=== PATIENT | male | born 1995 | race Caucasian/White ===

== ENCOUNTER 2018-02-25 11:43 | Observation (INO) | payer BC ==
[2018-02-25 12:07] LABS: PLATELET COUNT 233 10^3/uL (150-400)
[2018-02-25] MEDS ORDERED: NS 1,000 ML IV ONE ×3 (12:18→13:15)
--- NOTE | 2018-02-25 12:18 | EDPHY ---
H & P Stated Complaint: RLQ pain for 5 days, trouble voiding. Time Seen by Provider: 02/25/18 12:06 HPI/ROS: CHIEF COMPLAINT: Right lower quadrant abdominal pain HISTORY OF PRESENT ILLNESS: 23-year-old male complaining of 5 days of abdominal pain. Describes the pain is initially in the periumbilical region has now migrated to the right lower quadrant where he has focal tenderness, decreased appetite. Last oral intake was dinner last evening. He notes that he is also feeling constipated. Did have a bowel movement this morning but describes as being smaller than usual. No back pain. No vomiting. No fever or chills. No abdominal or testicular trauma. No genitalia pain. Last oral intake was dinner last night REVIEW OF SYSTEMS: A ten point review of systems was performed and is negative with the exception of the items mentioned in the HPI PAST MEDICAL & SURGICAL HISTORY: No pertinent medical or surgical history SOCIAL HISTORY: Positive for chewing tobacco PHYSICAL EXAM (Prior to examination, patient consented to physical exam, hands were washed and my usual and customary physical exam procedures followed) 1) GENERAL: Well-developed, well-nourished, alert and oriented. Appears to be in no acute distress. 2) HEAD: Normocephalic, atraumatic 3) HEENT: Pupils equal, round, reactive to light bilaterally. Sclera anicteric. Nasopharynx, oropharynx, clear, no lesions. 4) NECK: Full range of motion, no meningeal signs. 5) LUNGS: Clear auscultation bilaterally, no wheezes, no rhonchi, no retractions. 6) HEART: Regular rate and rhythm, no murmur, no heave, no gallop. 7) ABDOMEN: he is focally tender to palpation in the right lower quadrant at McBurney's point,, negative Correia's, negative Rovsing's, negative peritoneal sign, 8) MUSCULOSKELETAL: Moving all extremities, no focal areas of tenderness, no obvious trauma. No peripheral edema or discoloration. 9) BACK: No CVA tenderness, no midline vertebral tenderness, no fluctuance, no step-off, no obvious trauma, no visual or palpable abnormality. 10) SKIN: No rash, no petechiae. 11) : Normal male external genitalia, circumcised, no urethral discharge, bilateral testicles nontender, bilateral testicles non high-riding, cremasteric reflex present and brisk bilaterally. Inguinal examination bilaterally is unremarkable with no hernia or mass appreciated.. DIFFERENTIAL DIAGNOSIS: My differential diagnosis includes, but is not limited to, acute appendicitis, acute cholecystitis, bowel obstruction, acute pancreatitis, testicular torsion, constipation, gastritis and urinary tract infection. The patient understands that this diagnosis is provisional and can never be 100% accurate. This is a partial list of diagnoses considered. These considerations are based on history, physical exam, past history and reassessment. - Personal History Current Tetanus Diphtheria and Acellular Pertussis (TDAP): Yes - Medical/Surgical History Hx Asthma: No Hx Chronic Respiratory Disease: No Hx Diabetes: No Hx Cardiac Disease: No Hx Renal Disease: No Hx Cirrhosis: No Hx Alcoholism: No Hx HIV/AIDS: No Hx Splenectomy or Spleen Trauma: No Other PMH: Denies - Social History Smoking Status: Current every day smoker Constitutional: Initial Vital Signs Temperature (C) 36.6 C 02/25/18 11:43 Heart Rate 83 02/25/18 11:43 Respiratory Rate 16 02/25/18 11:43 Blood Pressure 116/79 02/25/18 11:43 O2 Sat (%) 96 02/25/18 11:43 O2 Delivery Mode Room Air Allergies/Adverse Reactions: No Known Allergies Allergy (Unverified 02/25/18 11:47) Home Medications: Medication Instructions Recorded Herbals/Supplements -Info Only 1 ea PO DAILY 02/25/18 [place]-3 Fatty Acids [Fish Oil 1000 1,000 mg PO DAILY 02/25/18 mg (*)] Medical Decision Making - Diagnostics Imaging Results: Imaging Impressions Abdomen CT 02/25/18 12:28 Impression: Acute appendicitis Results called and discussed with Ezekiel Kaur, at 02/25/2018 13:11 General information for patients regarding this examination can be found at [email or web address]. If you have questions or comments about this report, please contact me at [phone] (hospital) or [phone] (cell). Images reviewed by myself ED Course/Re-evaluation: 12:20 p.m.: Patient is complaining of right lower quadrant abdominal pain is focally tender to palpations location. Will obtain diagnostic studies and likely imaging studies. Care of patient under supervision of secondary supervising physician Dr Valentine with whom I discussed case. 1:10 p.m.: Consultation with radiologist who called me regarding patient's positive appendicitis findings on CT imaging with no evidence of perforation. 1:15 p.m.: Consultation with on-call surgery Dr. Coughlin will plan on taking patient operating room later this afternoon. Patient remains NPO since dinner last night. - Data Points Laboratory Results: Laboratory Results 02/25/18 11:56 02/25/18 11:56 02/25/18 02/25/18 11:56 11:56 WBC 7.47 10^3/uL 10^3/uL (3.80-9.50) RBC 5.36 10^6/uL 10^6/uL (4.40-6.38) Hgb 16.0 g/dL g/dL (13.7-17.5) Hct 46.2 % % (40.0-51.0) MCV 86.2 fL fL (81.5-99.8) MCH 29.9 pg pg (27.9-34.1) MCHC 34.6 g/dL g/dL (32.4-36.7) RDW 11.5 % % (11.5-15.2) Plt Count 233 10^3/uL 10^3/uL (150-400) MPV 9.7 fL fL (8.7-11.7) Neut % (Auto) 62.9 % % (39.3-74.2) Lymph % (Auto) 23.0 % % (15.0-45.0) Frederick % (Auto) 9.4 % % (4.5-13.0) Eos % (Auto) 3.9 % % (0.6-7.6) Baso % (Auto) 0.5 % % (0.3-1.7) Nucleat RBC Rel Count 0.0 % % (0.0-0.2) Absolute Neuts (auto) 4.70 10^3/uL 10^3/uL (1.70-6.50) Absolute Lymphs (auto) 1.72 10^3/uL 10^3/uL (1.00-3.00) Absolute Monos (auto) 0.70 10^3/uL 10^3/uL (0.30-0.80) Absolute Eos (auto) 0.29 10^3/uL 10^3/uL (0.03-0.40) Absolute Basos (auto) 0.04 10^3/uL 10^3/uL (0.02-0.10) Absolute Nucleated RBC 0.00 10^3/uL 10^3/uL (0-0.01) Immature Gran % 0.3 % % (0.0-1.1) Immature Gran # 0.02 10^3/uL 10^3/uL (0.00-0.10) Sodium 142 mEq/L mEq/L (135-145) Potassium 4.5 mEq/L mEq/L (3.5-5.2) Chloride 103 mEq/L mEq/L (97-110) Carbon Dioxide 24 mEq/l mEq/l (22-31) Anion Gap 15 mEq/L mEq/L (8-16) BUN 14 mg/dL mg/dL (7-23) Creatinine 0.9 mg/dL mg/dL (0.7-1.3) Estimated GFR > 60 Glucose 98 mg/dL mg/dL (70-100) Calcium 9.4 mg/dL mg/dL (8.5-10.4) Total Bilirubin 0.6 mg/dL mg/dL (0.1-1.4) Conjugated Bilirubin 0.5 mg/dL mg/dL (0.0-0.5) Unconjugated Bilirubin 0.1 mg/dL mg/dL (0.0-1.1) AST 33 IU/L IU/L (17-59) ALT 67 IU/L IU/L (21-72) Alkaline Phosphatase 69 IU/L IU/L (38-126) Total Protein 7.5 g/dL g/dL (6.3-8.2) Albumin 4.4 g/dL g/dL (3.5-5.0) Lipase 114 IU/L IU/L (23-300) Medications Given: Discontinued Medications Cefazolin Sodium (Ancef Syringe) Confirm Administered Dose 1 gm .ROUTE .STK-MED ONE Stop: 02/25/18 15:24 Last Admin: 02/25/18 16:13 Dose: 1 gm Heparin Sodium (Porcine) (Heparin Sc Injection) Confirm Administered Dose 10, 000 unit .ROUTE .STK-MED ONE Stop: 02/25/18 15:23 Last Admin: 02/25/18 16:13 Dose: 5,000 unit Sodium Chloride (Ns) 1,000 mls @ 0 mls/hr IV ONCE ONE PRN Reason: Wide Open Stop: 02/25/18 12:19 Last Admin: 02/25/18 12:30 Dose: 1,000 mls Ceftriaxone Sodium/Dextrose (Rocephin 1 Gm (Premix)) 50 mls @ 100 mls/hr IV EDNOW ONE PRN Reason: Protocol Stop: 02/25/18 13:44 Last Admin: 02/25/18 13:21 Dose: 50 mls Metronidazole/Sodium Chloride (Flagyl 500 Mg (Premix)) 100 mls @ 100 mls/hr IV EDNOW ONE PRN Reason: Protocol Stop: 02/25/18 14:12 Last Admin: 02/25/18 13:21 Dose: 100 mls Sodium Chloride (Ns) 1,000 mls @ 0 mls/hr IV ONCE ONE PRN Reason: Wide Open Stop: 02/25/18 12:31 Last Admin: 02/25/18 13:20 Dose: 1,000 mls Sodium Chloride (Ns) 1,000 mls @ 0 mls/hr IV ONCE ONE PRN Reason: Wide Open Stop: 02/25/18 13:16 Last Admin: 02/25/18 13:21 Dose: Not Given Departure - Departure Disposition: [facility] Inpatient Acute Clinical Impression: Acute appendicitis Qualifiers: Acute appendicitis type: with localized peritonitis Qualified Code(s): K35.3 - Acute appendicitis with localized peritonitis Condition: Fair
[2018-02-25] MEDS ORDERED: IOPAMIDOL (ISOVUE-300) 100 ML BTL ONE (12:31)
[2018-02-25] MEDS ORDERED: LR 1,000 ML IV ONE (15:03)
[2018-02-25] MEDS ORDERED: HEPARIN 5,000 UNIT/0.5 ML SYR ONE (15:22)
[2018-02-25] MEDS ORDERED: ceFAZolin 1 GM/5 ML SYR ONE (15:23)
--- NOTE | 2018-02-25 15:30 | GHP ---
[f rep st] PREOP HISTORY AND PHYSICAL DATE OF ADMISSION: 02/25/2018 The patient is a 23-year-old white male who has had the onset of abdominal pain since Sunday morning at 2 to 3 in the morning. He woke with pain. It was described as "stomach cramps" and a colicky pain centered in the epigastrium, later spreading to the lower abdomen. He has had minimal bowel movements over the week. He has had a decreased appetite. Today, his pain has moved to the right lower quadrant. He was seen in the ER and a CAT scan was consistent with an acute appendicitis with a great amount of periappendiceal edema. He has had no recent upper respiratory tract infection or diarrhea. He has not traveled outside the [place] or had antibiotics in the last 6 months. There is no history of inflammatory bowel disease, though he does have irritable bowel-like symptoms (diarrhea). He had no prior abdominal surgery and no prior similar symptoms. SOCIAL HISTORY: He has been using tobacco products since age 12. Currently he is down to 2-3 cigarettes a day but does chew a tin of tobacco on a daily basis. He does not use alcohol. ALLERGIES: He has no known drug allergies. MEDICATIONS: He does take a probiotic. PAST MEDICAL HISTORY: He had a circumcision, then a recircumcision at age 4. He has no history of rheumatic fever, tuberculosis, hepatitis, or transfusions. REVIEW OF SYSTEMS: He had a concussion at age 5. He does have GERD on a daily basis (at night when he lies down) for greater than 5 years. He is tried starting using psyllium husk for his irritable bowel syndrome/diarrhea. There are no limitations on his activities. No history of steroid use. PHYSICAL EXAMINATION: GENERAL: He is awake and alert and in mild distress. HEENT: His skull is normocephalic and atraumatic. NEUROLOGIC: He is alert and oriented. No focal lateralizing findings. NECK: Unremarkable. Specifically, there are no carotid bruits. His thyroid is not enlarged. LYMPH NODES: There is no cervical, supraclavicular, axillary, or inguinal lymphadenopathy. BACK: Unremarkable. LUNGS: Clear to auscultation. CARDIAC: S1, S2 normal. Normal split of S2. ABDOMEN: Hypoactive bowel sounds. Psoas and obturator signs are negative. He is nontender with cough. To palpation, on a scale of 1-10, left upper quadrant is 1, left mid abdomen is 2, left lower quadrant is 4, epigastrium is 1, periumbilical area is 1, suprapubic area is 2, right upper quadrant is 1, right mid abdomen is 5, right lower quadrant is 8. DIAGNOSTICS: His white blood cell count is 7.4 with 62% neutrophils. Hematocrit is 46. His chemistries are unremarkable. His CAT scan shows an appendix with periappendiceal fluid, but no obvious rupture. PLAN: I will plan a laparoscopic appendectomy. The patient understands the planned procedure and agrees to proceed as outlined. /[id number]/MODL MTDD
[2018-02-25] MEDS ORDERED: fentaNYL 100 MCG/2 ML INJ ONE (15:45)
[2018-02-25] MEDS ORDERED: PROPOFOL/EMULSION 500 MG/50 ML BOTTLE IV ONE (15:45)
[2018-02-25] MEDS ORDERED: MIDAZOLAM 2 MG/2 ML VIAL ONE (15:45)
[2018-02-25] MEDS ORDERED: ONDANSETRON 4 MG/2 ML VIAL IVP PRN ×2 (15:51→16:07)
[2018-02-25] MEDS ORDERED: HYDROmorphONE/DILAUDID 1 MG/ML INJ IVP PRN (15:51)
[2018-02-25] MEDS ORDERED: ONDANSETRON 4 MG/2 ML VIAL ONE (15:59)
[2018-02-25] MEDS ORDERED: SUGAMMADEX SODIUM 200 MG/2 ML VIAL IVP ONE (15:59)
[2018-02-25] MEDS ORDERED: KETOROLAC 30 MG/1 ML SDV ONE (15:59)
[2018-02-25] MEDS ORDERED: METOCLOPRAMIDE 10 MG/2 ML VIAL ONE (15:59)
[2018-02-25] MEDS ORDERED: ROCURONIUM 50 MG/5 ML VIAL ONE (15:59)
[2018-02-25] MEDS ORDERED: LR 1,000 ML IV SCH (16:00)
[2018-02-25] MEDS ORDERED: oxyCODONE IR 5 MG TAB PO PRN (16:07)
[2018-02-25] MEDS ORDERED: DEXAMETHASONE 4 MG/ML VIAL IVP PRN (16:07)
[2018-02-25] MEDS ORDERED: ACETAMINOPHEN 500 MG TAB PO PRN (16:07)
[2018-02-25] MEDS ORDERED: ALBUTEROL 3 ML DEYVIAL IH PRN (16:07)
[2018-02-25] MEDS ORDERED: NALOXONE HCL 0.4 MG/ML INJ IVP PRN (16:07)
[2018-02-25] MEDS ORDERED: METOCLOPRAMIDE 10 MG/2 ML VIAL IVP PRN (16:07)
[2018-02-25] MEDS ORDERED: PROMETHAZINE HCL 25 MG/ML INJ IVP PRN (16:07)
[2018-02-25] MEDS ORDERED: fentaNYL 100 MCG/2 ML INJ IVP PRN (16:07)
[2018-02-25] MEDS ORDERED: LR 500 ML IV PRN (16:07)
[2018-02-25] MEDS ORDERED: HYDROCODONE/APAP 5/325 TAB PO PRN (16:07)
--- NOTE | 2018-02-25 16:07 | PDANEPAE ---
ANE Past Medical History - Pulmonary History Hx Oxygen in Use at Home: No Hx Sleep Apnea: No - Endocrine History Hx Diabetes: No ANE Review of Systems Review of Systems: ANE Patient History - Allergies Allergies/Adverse Reactions: No Known Allergies Allergy (Unverified 02/25/18 11:47) - Home Medications Home Medications: Herbals/Supplements -Info Only 1 ea PO DAILY 02/25/18 [Last Taken Unknown] [place]-3 Fatty Acids [Fish Oil 1000 mg (*)] 1,000 mg PO DAILY 02/25/18 [Last Taken Unknown] - NPO status NPO Since - Liquids (Date): 02/24/18 NPO Since - Liquids (Time): 21:00 NPO Since - Solids (Date): 02/24/18 NPO Since - Solids (Time): 21:00 - Smoking Hx Smoking Status: Current every day smoker ANE Labs/Vital Signs - Labs Result Diagrams: 02/25/18 11:56 02/25/18 11:56 - Vital Signs Blood Pressure: 125/71 Heart Rate: 58 Respiratory Rate: 16 O2 Sat (%): 97 Height: 182.88 cm Weight: 106.594 kg ANE Physical Exam - Airway Neck exam: FROM Mallampati Score: Class 1 Mouth exam: normal dental/mouth exam - Pulmonary Pulmonary: no respiratory distress, no rales or rhonchi - Cardiovascular Cardiovascular: regular rate and rhythym, no murmur, rub, or gallop - ASA Status ASA Status: II, E ANE Anesthesia Plan Anesthesia Plan: general endotracheal anesthesia
[2018-02-25] MEDS ORDERED: PROPOFOL 200 MG/20 ML VIAL ONE (16:54)
[2018-02-25] MEDS ORDERED: MEPERIDINE 25 MG/ML SYR ONE (17:10)
--- NOTE | 2018-02-25 17:18 | POSTOPPROG ---
Post Op Note Date of Operation: 02/25/18 Surgeon: Tristan Coughlin Anesthesia: GET(General Endotracheal) Pre-op Diagnosis: acute appendicitis Post-op Diagnosis: acute unruptured appendicitis Indication: acute appendicitis Procedure: Laparoscopic appendectomy Findings: acute unruptured appendicitis Inf/Abcess present in the surg proc area at time of surgery?: No EBL: Minimal Total fluids administered: 500 Complications: none Specimen(s): appendix
[2018-02-25] MEDS ORDERED: ACETAMINOPHEN 500 MG TAB ONE (17:34)
[2018-02-25] MEDS: ACETAMINOPHEN 325 MG TAB PO SCH (17:36)
[2018-02-25] MEDS ORDERED: MEPERIDINE 25 MG/ML SYR IVP ONE (17:45)
[2018-02-25] MEDS ORDERED: KETOROLAC 15 MG/1 ML SDV IVP SCH (18:00)
[2018-02-25] MEDS ORDERED: HYDROmorphone HCL/NS 0.5 MG/ML SYR IVP PRN (18:13)
--- NOTE | 2018-02-25 18:40 | POSTANESTH ---
Post Anesthetic Evaluation Cardiovascular Status: Normal, Stable, Similar to Pre-Op Cond Respiratory Status: Normal, Stable, Similar to Pre-op Cond. Level of Consciousness/Mental Status: Can Participate in Eval Pain Control: Adequate, Prn Tx Ordered Nausea/Vomiting Control: Adequate, Prn Tx Ordered Complications Possibly Related to Anesthesia: None Noted
[2018-02-25] MEDS: KETOROLAC 30 MG/1 ML SDV IVP SCH (18:41)
--- NOTE | 2018-02-25 18:51 | GOP ---
[f rep st] OPERATIVE REPORT DATE OF OPERATION: 02/25/2018 SURGEON: Tristan Coughlin MD PREOPERATIVE DIAGNOSIS: Acute appendicitis. POSTOPERATIVE DIAGNOSIS: Acute unruptured appendicitis. PROCEDURE PERFORMED: Laparoscopic appendectomy. FINDINGS: Acute unruptured appendicitis. INDICATIONS: Acute appendicitis. DESCRIPTION OF PROCEDURE: The patient is placed on the operating table in supine position. After induction of adequate general endotracheal anesthesia, the abdomen was clipped, prepped, and draped. A surgical time-out was carried out and agreed to by all members of the operative team. A curvilinear incision was planned at the umbilicus. A transverse suprapubic incision was planned as well as an oblique left lower quadrant incision. At all sites, the skin was incised. At the infraumbilical site, dissection was carried down to the anterior rectus sheath which was elevated between 2 Allis clamps. The sheath was divided in the midline. A pursestring #0 PDS was placed. The peritoneum was entered. An 11-12 mm disposable Sandy trocar was positioned. Intra-abdominal insufflation was carried out to 15 mmHg, high- flow. The appendix is adherent to the right lower quadrant and has omentum stuck to it. There was translucent fluid in the pelvis. The 5 mm port was placed through the left lower quadrant incision. A 2nd one was placed through a suprapubic transverse incision. Using the Harmonic, the adherent omentum was carefully taken down. The terminal ileum was mobilized. Cecum is mobilized. Dissection was continued down to the appendiceal base. The appendix was elevated and the appendix was transected at the junction with the cecum using a 35 mm Endo-PAXTON stapler. The specimen was placed in an EndoCatch bag. It is quite large and I could not easily deliver it at the umbilical port site. The neck of the bag was opened outside the abdomen and using ring forceps, the appendix was delivered in pieces. The umbilical port site was well irrigated. Pneumoperitoneum was re- established. Hemostasis was checked. There was 1 bleeding point from the cecal mobilization which was secured with an application of the harmonic scalpel. The abdominal cavity was well irrigated with heparin and Ancef containing irrigant. The small bowel was run for a distance of 3 feet. Mesenteric adenitis was not identified. There is no evidence of Meckel diverticulum. Ports removed under direct vision. An inverted simple suture of #0 PDS was placed at the midpoint of the infraumbilical midline fascial incision. This was tied. The pursestring was now tied. The subcutaneous tissue was well irrigated with heparin and Ancef containing irrigant. Hemostasis is assured. All skin incisions were closed with inverted simple sutures of #4-0 Vicryl. Mastisol and Steri-Strips were placed. Band-Aids were positioned. The patient was transferred to recovery in stable and satisfactory condition. /[id number]/MODL MTDD
[2018-02-25] MEDS: ENOXAPARIN 30 MG/0.3 ML SYR SC SCH (20:39)
[2018-02-26] MEDS ORDERED: KETOROLAC 30 MG/1 ML SDV IVP SCH
[2018-02-26] MEDS: ACETAMINOPHEN 500 MG TAB PO SCH ×2 (00:30→09:05)
[2018-02-26] MEDS: KETOROLAC 30 MG/1 ML SDV IVP SCH ×2 (00:31→05:40)
[2018-02-26] MEDS: ACETAMINOPHEN 325 MG TAB PO SCH (00:36)
[2018-02-26 04:40] VITALS: BP 111/51
[2018-02-26] MEDS ORDERED: *PHM DO NO USE-cefTRIAXone 40 MG/ML IV PED/NEWBORN SYR IV SCH (09:00)
[2018-02-26] MEDS ORDERED: OMEGA-3 FATTY ACIDS 1,000 MG CAP PO SCH (09:00)
[2018-02-26] MEDS: ENOXAPARIN 30 MG/0.3 ML SYR SC SCH (09:06)
--- NOTE | 2018-02-26 09:28 | SOAPPROG ---
SOAP Progress Note Assessment/Plan: Assessment/Plan: 23yo M POD#1 s/p lap appy for acute appendicitis Pain controlled No nausea Passing flatus Tolerating regular diet OK to remove bandages and shower tomorrow Dispo: DC home. FU 2 weeks. Avoid heavy lifting, pushing or pulling x [address] Sagastume S: feeling "medium" this morning. pain controlled. ate regular food without n/v/ d. Passing flatus O: laying in bed sleeping but easily arousible. NAD No increased WOB +BS, abd soft nondistended nontender. Dressings in place Objective: Vital Signs Temp Pulse Resp BP Pulse Ox 37.1 C 63 14 111/51 L 94 02/26/18 04:00 02/26/18 04:00 02/26/18 04:00 02/26/18 04:00 02/26/18 04:00 02/25/18 02/26/18 02/27/18 05:59 05:59 05:59 Intake Total 2250 Output Total 1810 Balance 440 ICD10 Worksheet Patient Problems: Problems Problem Status Onset Acute appendicitis Acute
--- NOTE | 2018-02-26 11:29 | GDS ---
[f rep st] DISCHARGE SUMMARY ADMITTING DIAGNOSIS: Acute appendicitis. SECONDARY DIAGNOSIS: None. REASON FOR ADMISSION: The patient is a 23-year-old man who presented to the emergency room complaini ng of abdominal pain. CT was performed, which showed acute appendicitis with periappendiceal edema. He was admitted for surgical intervention, pain control, and observation. HOSPITAL COURSE: He was taken to the operating room by Dr. Coughlin on 02/25/2018 for laparoscopic abimael endectomy. Pathology is pending. On postoperative day #1, he was tolerating a regular diet, ambulat ing independently, and pain was well controlled. He is ready for discharge. DISCHARGE MEDICATIONS: Home prescription for [place]ose. Instructed to resume home medicines. Please se e EMR for further detail. DISCHARGE INSTRUCTIONS AND FOLLOWUP: He will follow up with GIN Mae, in 1 week. Call with worsening symptoms, questions, or concerns. He may shower tomorrow and remove dressings. Avoid hea vy lifting, pushing, or pulling x2 weeks. /[id number]/MODL
== END 2018-02-26 10:30 | disposition home or self-care (01) ==
LOC: F3E 17:55
PROVIDERS: ADMIT Surgery; ATTEND Surgery
PROC: 0DTJ4ZZ Resection of Appendix, Percutaneous Endoscopic Approach (ICD-10-PCS; principal; 2018-02-25 15:30)
DX: K35.80 Unspecified acute appendicitis (principal); F17.200 Nicotine dependence, unspecified, uncomplicated; K21.9 Gastro-esophageal reflux disease without esophagitis
CPT/HCPCS: 44970; 74177; G0378; 96365; J0696; J1170; J1644; J1650; J1885; J2175; J2250; J2405; J2704; J2765; J3010; Q9967